=== PATIENT | male | born 1955 | race Hispanic/Latino ===

== ENCOUNTER 2020-09-17 21:11 | Emergency (ER) | payer OTHER ==
[~2020-09-17] VITALS: Ht 167.6 cm; Wt 89.8 kg
[2020-09-17] MEDS ORDERED: MOTRIN200 MG PO (21:50)
[2020-09-17] MEDS ORDERED: CEPHALEXIN500 MG PO (21:50)
== END 2020-09-17 22:11 | disposition home or self-care (01) ==
LOC: FSED 21:28
DX: S91.201A Unspecified open wound of right great toe with damage to nail, initial encounter (principal); W22.09XA Striking against other stationary object, initial encounter; I10 Essential (primary) hypertension; B35.1 Tinea unguium
CPT/HCPCS: 99283